=== PATIENT | female | born 1980 | race Caucasian/White ===

== ENCOUNTER 2020-09-27 05:36 | Outpatient (RCR) | payer OTHER ==
[~2020-09-27] VITALS: Ht 164 cm; Wt 81.8 kg
[~2020-09-27 05:36] MED LIST: BUPR300T43 PO; CITA40TA19 PO; HYDR-707 PO; NF-STRAT25 PO; QTP200T PO; QUET200T29 PO; SULF-222 PO
[2020-10-01] MEDS ORDERED: ACHD5005 PO (09:03)
[2020-10-01] MEDS ORDERED: IBUP-1773 PO (09:03)
== END 2020-09-27 11:39 | disposition home or self-care (01) ==
LOC: PREOP 05:36
PROVIDERS: ATTEND Obstetrics & Gynecology
DX: Z01.812 Encounter for preprocedural laboratory examination (principal); N93.9 Abnormal uterine and vaginal bleeding, unspecified; Z20.828 Contact with and (suspected) exposure to other viral communicable diseases
CPT/HCPCS: 87635

== ENCOUNTER 2020-10-01 07:30 | Day surgery (SDC) | payer SELFPAY ==
[~2020-10-01] VITALS: Ht 164 cm; Wt 81.8 kg
[2020-10-01] VITALS (9 sets, daily range): BP systolic 96–124; BP diastolic 52–87
[2020-10-01] MEDS ORDERED: MIDAZOLAM 2 MG/2 ML (VERSED) VIAL ONE ×2 (08:06→09:58)
[2020-10-01] MEDS ORDERED: LACTATED RINGERS 1,000 ML IV PRN (08:11)
[2020-10-01] MEDS ORDERED: MIDAZOLAM 2 MG/2 ML (VERSED) VIAL IVP ONE (08:15)
[2020-10-01 08:16] LABS: BASOPHILS % (AUTO) 1 % (0-10); EOSINOPHILS # (AUTO) 0.2 10^3/uL (0.0-0.3); EOSINOPHILS % (AUTO) 3 % (0-10); HEMATOCRIT 40 % (35-52); HEMOGLOBIN 12.9 g/dL (11.5-16.0); LYMPHOCYTES # (AUTO) 1.8 10^3/uL (1.0-4.0); LYMPHOCYTES % (AUTO) 24 % (12-44); MEAN CORPUSCULAR HEMOGLOBIN 33 pg (25-34); MEAN CORPUSCULAR HGB CONC 32 g/dL (32-36); MEAN CORPUSCULAR VOLUME 101 fL (80-99); MEAN PLATELET VOLUME 9.7 fL (9.0-12.2); MONOCYTES # (AUTO) 0.8 10^3/uL (0.0-1.0); MONOCYTES % (AUTO) 10 % (0-12); NEUTROPHILS # (AUTO) 4.6 10^3/uL (1.8-7.8); NEUTROPHILS % (AUTO) 62 % (42-75); PLATELET COUNT 373 10^3/uL (130-400); WHITE BLOOD COUNT 7.4 10^3/uL (4.3-11.0)
[2020-10-01] MEDS ORDERED: MIDAZOLAM 2 MG/2 ML (VERSED) VIAL IV ONE (08:30)
[2020-10-01] MEDS ORDERED: BUPIVACAINE 0.25% 30 ML (SENSORCAINE) VIAL ONE (08:58)
[2020-10-01] MEDS ORDERED: D5 LR IV SOLUTION 1,000 ML IV SCH (09:01)
--- NOTE | 2020-10-01 09:01 | Progress Note-Pre Operative ---
Pre-Operative Progress Note H&P Reviewed The H&P was reviewed, patient examined and no changes noted. Date Seen by Provider: Oct 01, 2020 Time Seen by Provider: 09:00 Date H&P Reviewed: Oct 01, 2020 Time H&P Reviewed: 09:00 Pre-Operative Diagnosis: AUB, SANNA III with pos endocervix MICHA SCHAFER DO Oct 01, 2020 09:01
[2020-10-01] MEDS ORDERED: ACHD5005 PO (09:03)
[2020-10-01] MEDS ORDERED: IBUP-1773 PO (09:03)
--- NOTE | 2020-10-01 09:03 | Discharge Inst-Women's Service ---
Discharge Inst-Women's Serv Depart Medication/Instructions New, Converted or Re-Newed RX: RX on Chart Problems Reviewed?: Yes Consults/Follow Up Additional Follow Up: Yes Orders/Referrals Dr. Schafer in 2-3 weeks Activity Activity: Activity as Tolerated Driving Instructions: No Driving for 1 Week NO SMOKING: NO SMOKING Nothing Inside Vagina: No Douching, No [place], No Tampons Diet Discharge Diet: No Restrictions Symptoms to Report to : Bleeding Excessive, Pain Increased, Fever Over 101 Degrees F, Vaginal Bleeding Increase, Questions/Concerns For Any Problems or Questions: Contact Your Physician MICHA SCHAFER DO Oct 01, 2020 09:03
[2020-10-01] MEDS ORDERED: HYDROcodone/APAP 5 MG/325 MG (LORTAB) TAB PO PRN (09:15)
[2020-10-01] MEDS ORDERED: KETOROLAC 30 MG/ML VIAL IVP ONE (09:15)
[2020-10-01] MEDS ORDERED: ONDANSETRON 4 MG/2 ML (SDV) Z0FRAN IVP PRN ×2 (09:15→11:00)
[2020-10-01] MEDS ORDERED: fentaNYL INJECTION 100 MCG/2 ML AMP ONE (09:57)
[2020-10-01] MEDS ORDERED: LIDOCAINE/EPI 1%-1:100,000 (XYLOCAINE) 20ML ONE (10:16)
[2020-10-01] MEDS ORDERED: ONDANSETRON 4 MG/2 ML (SDV) Z0FRAN ONE (10:26)
[2020-10-01] MEDS ORDERED: LIDOCAINE PF 2% 5 ML (XYLOCAINE) VIAL ONE (10:26)
[2020-10-01] MEDS ORDERED: proPOfol 200 MG/20 ML (DIPRIVAN) VIAL IV ONE (10:26)
[2020-10-01] MEDS ORDERED: SEVOFLURANE (ULTANE) 15 ML INHAL SOLN ONE (10:26)
[2020-10-01] MEDS ORDERED: morphine INJ 10 MG/ML 1ML (SYR OR VIAL) IVP ONE (11:00)
--- NOTE | 2020-10-01 11:16 | Anesthesia-General Post-Op ---
General Patient Condition Mental Status/LOC: Same as Preop Cardiovascular: Satisfactory Nausea/Vomiting: Absent Respiratory: Satisfactory Pain: Controlled Complications: Absent Post Op Complications Complications None Follow Up Care/Instructions Patient Instructions None needed. Anesthesia/Patient Condition Patient Condition Patient is doing well, no complaints, stable vital signs, no apparent adverse anesthesia problems. No complications reported per nursing. TWAN LAZO CRNA Oct 01, 2020 11:16
--- NOTE | 2020-10-01 21:46 | OPERATIVE REPORT ---
DATE OF SERVICE: PREOPERATIVE DIAGNOSES: 1. A 40-year-old female with abnormal uterine bleeding. 2. SANNA 3 with endocervical involvement. POSTOPERATIVE DIAGNOSES: 1. A 40-year-old female with abnormal uterine bleeding. 2. SANNA 3 with endocervical involvement. PROCEDURE: D and C with cold knife conization. SURGEON: Alexander De León DO ANESTHESIA: LMA general. ESTIMATED BLOOD LOSS: Minimal. URINE OUTPUT: 30 mL drained at the start of the procedure. FLUIDS: 800 mL lactated Ringer's solution. FINDINGS: Grossly normal-appearing external female genitalia with staining of the Lugol solution to the cervix approximately 0.5 cm lateral to the cervical os. SPECIMEN SENT: Endometrial curettings and conization biopsy of the cervix. INDICATIONS FOR PROCEDURE: This 40-year-old female was a consultation to me from the [facility] for a positive SANNA 3 on endocervical sampling on colposcopy. I discussed with the patient the need for conization for both diagnostic and potentially curative purposes. We also discussed proceeding with D and C due to the concern of possible endometrial involvement and invasion of the dysplasia. Risks of the procedure were discussed with the patient in detail and after all of her questions were answered, consent was obtained in the preoperative area and the patient was taken to the operating room. OPERATIVE REPORT IN DETAIL: Once in the operating room, anesthesia was found to be adequate, placed in dorsal lithotomy position, prepped and draped in normal sterile fashion. Timeout was performed. The bladder was drained using straight catheterization. Weighted speculum was inserted into the patient's vagina. Right angle retractor was used to visualize the cervix, which was grasped at 12 o'clock position using a single tooth tenaculum. I then performed paracervical block at 3 and 9 o'clock positions on the cervix. Care was taken to aspirate for injecting 5 mL of 0.25% Marcaine are injected into each site, after which I sound the uterine cavity, depth was found to be approximately 8 cm. I then gently dilated the cervix using Hanks dilators to approximately 1.2 cm, at which point I performed a methodical curettage of the endometrium and collect this tissue and sent as endometrial curettings. I then injected the cervical stroma and cervix is sounded using 1% lidocaine with epinephrine and place vascular ligating sutures at 3 and 9 o'clock position using 0 Vicryl suture. I then performed a conization along the margins of the Lugol solution, which was used to prep the cervix at the start of the procedure. This was done at the wide ectocervical margin of the suspected dysplasia and a cone biopsy was taken of the cervix into the endocervix approximately 1.5 to 2 cm deep. The specimen was removed and sent in one sample as cervical conization. I then cauterized the vascular bed of the dissection margin and plane. I then place a Sturmdorf stitch using 2-0 Vicryl suture in all 4 quadrants of the biopsy margin and after this, a astrn- adapted physical education specialist was applied to the cervix as well. All instruments were removed from the patient's vagina. The patient tolerated the procedure well and sent to recovery in stable condition. Lap and sponge counts were correct at the end of the procedure. Instrument counts correct as well. Job ID: [id number] DocumentID: [id number] Dictated Date: 10/01/2020 11:14:32 Yarn Texturing Machine Operator Date: 10/01/2020 21:45:23 Dictated By: DO EDITH MCPHERSON
== END 2020-10-01 12:20 | disposition home or self-care (01) ==
LOC: SDC 07:30
PROVIDERS: ATTEND Obstetrics & Gynecology
DX: D06.9 Carcinoma in situ of cervix, unspecified (principal); N93.9 Abnormal uterine and vaginal bleeding, unspecified; J45.909 Unspecified asthma, uncomplicated; F41.9 Anxiety disorder, unspecified; F32.9 Major depressive disorder, single episode, unspecified; E66.9 Obesity, unspecified; Z68.30 Body mass index [BMI] 30.0-30.9, adult; F17.210 Nicotine dependence, cigarettes, uncomplicated; Z79.899 Other long term (current) drug therapy
CPT/HCPCS: 36415; 84703; 85025; 86850; 86870; 86900; 86901; 86902; 87081

== ENCOUNTER → 2020-11-13 | Outpatient (CLI) | payer OTHER ==
[~2020-11-13] MED LIST changes: +ACHD5005 PO; +IBUP-1773 PO
== END ==
LOC: RAD 09:00
PROVIDERS: ATTEND Obstetrics & Gynecology
DX: C53.9 Malignant neoplasm of cervix uteri, unspecified (principal); Z20.828 Contact with and (suspected) exposure to other viral communicable diseases

== ENCOUNTER 2020-11-21 05:30 | Outpatient (RCR) | payer OTHER ==
[~2020-11-21] VITALS: Ht 162 cm; Wt 84.0 kg
[~2020-11-21 05:30] MED LIST changes: +QUET100T PO; +QUET200T PO
== END 2020-11-21 15:18 | disposition home or self-care (01) ==
LOC: PREOP 05:30
PROVIDERS: ATTEND Surgery
DX: Z01.812 Encounter for preprocedural laboratory examination (principal); Z20.828 Contact with and (suspected) exposure to other viral communicable diseases
CPT/HCPCS: 87635

== ENCOUNTER → 2020-11-22 | Day surgery (SDC) | payer OTHER ==
[~2020-11-22] VITALS: Ht 162 cm; Wt 84.0 kg
[~2020-11-22] MED LIST changes: +0.9% SODIUM CHLORIDE PF INJ 20 ML VIAL ONE; +HEParin (CENTRAL IV FLUSH) 500 UNIT/5 ML SYR ONE; +LIDOCAINE/EPI 1%-1:100,000 (XYLOCAINE) 50 ML ONE; +MIDAZOLAM 2 MG/2 ML (VERSED) VIAL IV ONE; +ceFAZolin INJECTION 1,000 MG in WATER (STERILE) FOR INJECTION 10 ML IV ONE
[2020-11-22 07:15] VITALS: BP 125/90
[2020-11-22 07:34] LABS: AMPHETAMINE SCREEN, URINE POSITIVE (NEGATIVE); BARBITURATE SCREEN URINE NEGATIVE (NEGATIVE); BENZODIAZEPINES SCREEN URINE POSITIVE (NEGATIVE); CANNABINOID SCREEN, URINE POSITIVE (NEGATIVE); COCAINE SCREEN URINE NEGATIVE (NEGATIVE); METHADONE STAT NEGATIVE (NEGATIVE); METHAMPHETAMINE SCREEN URINE S POSITIVE (NEGATIVE); OPIATE SCREEN URINE NEGATIVE (NEGATIVE); OXYCODONE STAT NEGATIVE (NEGATIVE); PROPOXYPHENE STAT NEGATIVE (NEGATIVE); TRICYCLIC ANTIDEPRESSANTS SCRE POSITIVE (NEGATIVE)
--- NOTE | 2020-11-22 07:40 | NUR ---
RESULTS OF URINE DRUG SCREEN RECEIVED AND Laura CABRERA CRNA, NOTIFIED. Laura CABRERA CRNA, NOTIFIED DR. SPEARS AND THE SURGERY WILL BE CANCELLED. Laura CABRERA CRNA, SPOKE WITH THE PATIENT. IV DC'D PER THIS RN AND PATIENT DISMISSED TO HOME AT 0750.
== END ==
LOC: SDC 06:58
PROVIDERS: ATTEND Surgery
DX: I87.2 Venous insufficiency (chronic) (peripheral) (principal); Z53.8 Procedure and treatment not carried out for other reasons
CPT/HCPCS: 80306; 84703; 87081

== ENCOUNTER 2020-11-27 12:00 | Emergency (ER) | payer OTHER ==
[~2020-11-27] VITALS: Ht 152.4 cm; Wt 81.1 kg
[~2020-11-27 12:00] MED LIST changes: -0.9% SODIUM CHLORIDE PF INJ 20 ML VIAL ONE; -HEParin (CENTRAL IV FLUSH) 500 UNIT/5 ML SYR ONE; -LIDOCAINE/EPI 1%-1:100,000 (XYLOCAINE) 50 ML ONE; -MIDAZOLAM 2 MG/2 ML (VERSED) VIAL IV ONE; -ceFAZolin INJECTION 1,000 MG in WATER (STERILE) FOR INJECTION 10 ML IV ONE
[2020-11-27 12:49] LABS: BILIRUBIN,URINE NEGATIVE (NEGATIVE); CLARITY,URINE CLEAR; COLOR,URINE YELLOW; GLUCOSE, URINE (UA) NEGATIVE (NEGATIVE); KETONES,URINE NEGATIVE (NEGATIVE); LEUKOCYTE ESTERASE ,URINE NEGATIVE (NEGATIVE); NITRITE,URINE NEGATIVE (NEGATIVE); PROTEIN,URINE NEGATIVE (NEGATIVE)
[2020-11-27 12:50] LABS: BASOPHILS % (AUTO) 0 % (0-10); EOSINOPHILS # (AUTO) 0.2 10^3/uL (0.0-0.3); EOSINOPHILS % (AUTO) 3 % (0-10); HEMATOCRIT 39 % (35-52); HEMOGLOBIN 13.1 g/dL (11.5-16.0); LYMPHOCYTES # (AUTO) 2.5 10^3/uL (1.0-4.0); LYMPHOCYTES % (AUTO) 36 % (12-44); MEAN CORPUSCULAR HEMOGLOBIN 32 pg (25-34); MEAN CORPUSCULAR HGB CONC 34 g/dL (32-36); MEAN CORPUSCULAR VOLUME 96 fL (80-99); MEAN PLATELET VOLUME 9.2 fL (9.0-12.2); MONOCYTES # (AUTO) 0.5 10^3/uL (0.0-1.0); MONOCYTES % (AUTO) 6 % (0-12); NEUTROPHILS # (AUTO) 3.9 10^3/uL (1.8-7.8); NEUTROPHILS % (AUTO) 55 % (42-75); PLATELET COUNT 410 10^3/uL (130-400); WHITE BLOOD COUNT 7.2 10^3/uL (4.3-11.0)
[2020-11-27 13:01] LABS: BACTERIA,URINE TRACE /HPF; RBC,URINE RARE /HPF
[2020-11-27] MEDS ORDERED: IOHEXOL 350 MG/ML 100 ML (OMNIPAQUE 350) VIAL IV ONE (13:15)
[2020-11-27] MEDS ORDERED: NS 100 ML (IVPB) BAG IV ONE (13:15)
[2020-11-27] MEDS ORDERED: HOLD METFORMIN - RECEIVED CONTRAST 20 ML VIAL IV SCH (13:15)
[2020-11-27 13:24] LABS: ALANINE AMINOTRANSFERASE 14 U/L (0-55); ALBUMIN 3.7 GM/DL (3.2-4.5); ALKALINE PHOSPHATASE 51 U/L (40-136); BILIRUBIN,TOTAL 0.3 MG/DL (0.1-1.0); BUN/CREATININE RATIO 19; CALCIUM 8.5 MG/DL (8.5-10.1); CARBON DIOXIDE 29 MMOL/L (21-32); CHLORIDE 104 MMOL/L (98-107); CREATININE SERUM 0.68 MG/DL (0.60-1.30); GFR ESTIMATED > 60; GLUCOSE 119 MG/DL (70-105); LIPASE 38 U/L (8-78); SODIUM 134 MMOL/L (135-145); TOTAL PROTEIN 6.7 GM/DL (6.4-8.2)
--- NOTE | 2020-11-27 14:13 | Diagnostic Imaging Report ---
PROCEDURE: CT abdomen and pelvis with contrast. TECHNIQUE: Multiple contiguous axial images were obtained through the abdomen and pelvis after administration of intravenous contrast. Auto Exposure Controls were utilized during the CT exam to meet ALARA standards for radiation dose reduction. All CT scans use one or more of the following dose optimizing techniques: automated exposure control, MA and/or KvP adjustment based on patient size and exam type or iterative reconstruction. INDICATION: Left lower quadrant pain radiating to the back. COMPARISON: No prior studies are available for comparison. FINDINGS: The lung bases are clear. No discrete liver mass is identified. Gallbladder is surgically absent. There is no biliary ductal dilatation. Pancreas and spleen are unremarkable. No adrenal mass is identified. Kidneys are unremarkable. Aorta is nonaneurysmal. Small and large bowel loops appear to be normal in caliber. There is no obstruction. No definite inflammatory changes are seen. Specifically, left lower quadrant is unremarkable. There is moderate stool in the colon. No free fluid or fluid collection is identified. Bladder and uterus are unremarkable. No definite abdominal or pelvic lymphadenopathy is seen. IMPRESSION: Unremarkable CT of the abdomen and pelvis. No acute abnormality is identified. Dictated by: Dictated on workstation # [id number]
[2020-11-27] MEDS ORDERED: KETOROLAC 30 MG/ML VIAL IVP ONE (14:45)
[2020-11-27] MEDS ORDERED: TRAM-42 PO (14:56)
--- NOTE | 2020-11-27 14:57 | ED Abdominal Pain ---
General Chief Complaint: General Problems/Pain Stated Complaint: L SIDE PAIN / BACK PAIN Nursing Triage Note: AMB TO ROOM REPORTS HAD CERVICAL BIOSPY ON OCT 02 UNSURE OF RESULTS BUT WAS TO HAVE PORT PLACED LAST WEEK BUT WAS UNABLE TO BECAUSE SHE TESTED POSITIVE FOR METH. CON'T TO HAVE L SIDE PAIN. Sepsis Screen: No Definite Risk Source of Information: Patient Exam Limitations: No Limitations History of Present Illness Date Seen by Provider: Nov 27, 2020 Time Seen by Provider: 12:29 Initial Comments This 40-year-old woman presents to the emergency room with complaints of pain in the left flank and lower back region that radiates around to her abdomen. This has been ongoing for a few days. It is tender to palpation and painful with movement. She denies any constipation, diarrhea, fever, or urinary changes. She has a history of cervical squamous cell carcinoma diagnosed by cone biopsy. She was to have a PET scan but IV access has proved to be a problem. She was then scheduled for port placement but that was canceled when she tested positive for methamphetamines. 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 Dr. cShafer was her childrens club attendant obtaining the biopsy. Allergies and Home Medications Allergies Coded Allergies: No Known Drug Allergies (Unverified , 10/11/10) Home Medications Quetiapine Fumarate 200 Mg Tablet, 200 MG PO HS, (Reported) Quetiapine Fumarate 100 Mg Tablet, 100 MG PO DAILY PRN for ANXIETY, (Reported) Tramadol HCl 50 Mg Tablet, 50 MG PO Q6H PRN for PAIN-BREAKTHROUGH Prescribed by: GURPREET MEDINA on 11/27/20 3170 Patient Home Medication List Home Medication List Reviewed: Yes Review of Systems Review of Systems Constitutional: no symptoms reported EENTM: No Symptoms Reported Respiratory: No Symptoms Reported Cardiovascular: No Symptoms Reported Gastrointestinal: See HPI Genitourinary: See HPI Musculoskeletal: no symptoms reported Skin: no symptoms reported Psychiatric/Neurological: See HPI Endocrine: No Symptoms Reported Hematologic/Lymphatic: No Symptoms Reported Past Bqnirtt-Xeilog-Utlmbe Hx Past Med/Social Hx: Reviewed Nursing Past Med/Soc Hx Patient Social History Alcohol Use: Occasionally Uses Recreational Drug Use: Yes (METH) Type Used: Cigarettes 2nd Hand Smoke Exposure: Yes Recent Foreign Travel: No Contact w/Someone Who Travel: No Recent Infectious Disease Expo: No Recent Hopitalizations: No Seasonal Allergies Seasonal Allergies: Yes Past Medical History Surgeries: Yes (CERVICAL BIOPSY) Appendectomy, Gallbladder, Tubal Ligation Respiratory: Yes (BRONCHIAL ASTHMA) Asthma, Chronic Bronchitis Currently Using CPAP: No Currently Using BIPAP: No Cardiac: No Neurological: Yes Headaches /Migraines Reproductive Disorders: No CONCHE OPERATOR History: Tubal Ligation Genitourinary: Yes Kidney Stones Gastrointestinal: Yes Gastroesophageal Reflux Musculoskeletal: No Endocrine: No HEENT: No Loss of Vision: Denies Hearing Impairment: Denies Cancer: Yes Cervical Psychosocial: Yes Anxiety, Depression Integumentary: No Blood Disorders: Yes (MRSA) Adverse Reaction/Blood Tranf: No (N/A) Physical Exam Vital Signs Vital Signs - First Documented 11/27/20 12:06 Temp 35.3 Pulse 87 Resp 18 B/P (MAP) 131/87 (102) Pulse Ox 98 O2 Delivery Room Air Capillary Refill : Less Than 3 Seconds Height/Weight/BMI Height: 5'4" Weight: 190lbs. oz. [id number]; 34.00 BMI Method:Stated General Appearance: WD/WN, mild distress HEENT: normal ENT inspection Neck: normal inspection Respiratory: lungs clear, normal breath sounds, no respiratory distress Cardiovascular: regular rate, rhythm, no edema, no murmur Gastrointestinal: normal bowel sounds, soft, tenderness (Minimal in the left lower quadrant) Extremities: normal inspection, no pedal edema Back: no CVA tenderness Neurologic/Psychiatric: executive candidate developer II-XII nml as tested, no motor/sensory deficits, alert, normal mood/affect, oriented x 3 Skin: normal color, warm/dry Progress/Results/Core Measures Results/Orders Lab Results Laboratory Tests Test 11/27/20 12:33 11/27/20 12:44 Range/Units Urine Color YELLOW Urine Clarity CLEAR Urine pH 6.0 5-9 Urine Specific [place]ver 1.015 L 1.016-1.022 Urine Protein NEGATIVE NEGATIVE Urine Glucose (UA) NEGATIVE NEGATIVE Urine Ketones NEGATIVE NEGATIVE Urine Nitrite NEGATIVE NEGATIVE Urine Bilirubin NEGATIVE NEGATIVE Urine Urobilinogen 0.2 < = 1.0 MG/DL Urine Leukocyte Esterase NEGATIVE NEGATIVE Urine RBC (Auto) 1+ H NEGATIVE Urine RBC RARE /HPF Urine WBC NONE /HPF Urine Squamous Epithelial Cells 5-10 /HPF Urine Crystals NONE /LPF Urine Bacteria TRACE /HPF Urine Casts NONE /LPF Urine Mucus NEGATIVE /LPF Urine Culture Indicated NO White Blood Count 7.2 4.3-11.0 10^3/uL Red Blood Count 4.07 3.80-5.11 10^6/uL Hemoglobin 13.1 11.5-16.0 g/dL Hematocrit 39 35-52 % Mean Corpuscular Volume 96 80-99 fL Mean Corpuscular Hemoglobin 32 25-34 pg Mean Corpuscular Hemoglobin Concent 34 32-36 g/dL Red Cell Distribution Width 13.0 10.0-14.5 % Platelet Count 410 H 130-400 10^3/uL Mean Platelet Volume 9.2 9.0-12.2 fL Immature Granulocyte % (Auto) 0 % Neutrophils (%) (Auto) 55 42-75 % Lymphocytes (%) (Auto) 36 12-44 % Monocytes (%) (Auto) 6 0-12 % Eosinophils (%) (Auto) 3 0-10 % Basophils (%) (Auto) 0 0-10 % Neutrophils # (Auto) 3.9 1.8-7.8 10^3/uL Lymphocytes # (Auto) 2.5 1.0-4.0 10^3/uL Monocytes # (Auto) 0.5 0.0-1.0 10^3/uL Eosinophils # (Auto) 0.2 0.0-0.3 10^3/uL Basophils # (Auto) 0.0 0.0-0.1 10^3/uL Immature Granulocyte # (Auto) 0.0 0.0-0.1 10^3/uL Sodium Level 134 L 135-145 MMOL/L Potassium Level 4.0 3.6-5.0 MMOL/L Chloride Level 104 98-107 MMOL/L Carbon Dioxide Level 29 21-32 MMOL/L Anion Gap 1 L 5-14 MMOL/L Blood Urea Nitrogen 13 7-18 MG/DL Creatinine 0.68 0.60-1.30 MG/DL Estimat Glomerular Filtration Rate > 60 BUN/Creatinine Ratio 19 Glucose Level 119 H 70-105 MG/DL Calcium Level 8.5 8.5-10.1 MG/DL Corrected Calcium 8.7 8.5-10.1 MG/DL Total Bilirubin 0.3 0.1-1.0 MG/DL Aspartate Amino Transf (AST/SGOT) 19 5-34 U/L Alanine Aminotransferase (ALT/SGPT) 14 0-55 U/L Alkaline Phosphatase 51 40-136 U/L Total Protein 6.7 6.4-8.2 GM/DL Albumin 3.7 3.2-4.5 GM/DL Lipase 38 8-78 U/L Serum Test, Qualitative NEGATIVE NEGATIVE My Orders Orders - GURPREET CHINO MD Cbc With Automated Diff (11/27/20 12:29) Comprehensive Metabolic Panel (11/27/20 12:29) Hcg,Qualitative Serum (11/27/20 12:29) Lipase (11/27/20 12:29) Ua Culture If Indicated (11/27/20 12:29) Ct Abdomen/Pelvis W (11/27/20 12:29) Ed Iv/Invasive Line Start (11/27/20 12:29) Iohexol Injection (Omnipaque 350 Mg/Ml 1 (11/27/20 13:15) Received Contrast (Hold Metformin- Contr (11/27/20 13:15) Ns (Ivpb) (Sodium Chloride 0.9% Ivpb Bag (11/27/20 13:15) Ketorolac Injection (Toradol Injection) (11/27/20 14:45) Medications Given in ED Current Medications Medications Dose Ordered Sig/Kimber Route Start Time Stop Time Status Last Admin Dose Admin Iohexol 100 ml ONCE ONCE IV 11/27/20 13:15 11/27/20 13:16 DC 11/27/20 13:48 100 ML Ketorolac Tromethamine 30 mg ONCE ONCE IVP 11/27/20 14:45 11/27/20 14:46 DC 11/27/20 15:01 30 MG Sodium Chloride 100 ml ONCE ONCE IV 11/27/20 13:15 11/27/20 13:16 DC 11/27/20 13:48 100 ML Vital Signs/I&O 11/27/20 11/27/20 12:06 15:13 Temp 35.3 Pulse 87 63 Resp 18 18 B/P (MAP) 131/87 (102) 120/74 Pulse Ox 98 98 O2 Delivery Room Air High Flow N/C Blood Pressure Mean: 102 Diagnostic Imaging Diagonstic Imaging: CT Plain Films/CT/US/NM/MRI: abdomen, pelvis Comments CT abdomen and pelvis was viewed by me and report reviewed. No acute abnormalities to account for her pain were identified. Lab work-up was also unremarkable. The importance of obtaining the PET scan was discussed. Pain was treated with Toradol in the ER. Departure Impression Primary Impression: Left sided abdominal pain Additional Impression: Squamous cell carcinoma of cervix Disposition: 01 HOME, SELF-CARE Condition: Improved Departure-Patient Inst. Decision time for Depature: 14:52 Referrals: NO,LOCAL PHYSICIAN (PCP/Family) Primary Care Physician Patient Instructions: Severe Abdominal Pain, Adult (DC) Add. Discharge Instructions: The exact cause of your back and abdominal pain is uncertain. There do not appear to be any infectious or surgical problems that need immediate attention today based on your work-up. It is very important that you pursue the PET scan for staging of the cervical squamous cell carcinoma identified on your biopsy. Avoid use of any illicit substances such as marijuana, methamphetamines, etc. so that it will not interfere with your PET scan or other work-ups. Use Tylenol (acetaminophen) up to 1000 mg every 6 hours as needed for pain. Add Ultram (tramadol) for pain not controlled by Tylenol. Please be advised this may cause drowsiness or constipation. You may choose to use a stool softener while taking Ultram. Avoid use of NSAIDs such as ibuprofen or naproxen for a while. These may worsen pain caused by stomach issues. It may be beneficial to take an antacid medication such as Pepcid (famotidine) or Prilosec (omeprazole) as your pain may be related to the stomach. These can be purchased [id number]. Return to the emergency room if you have worsening symptoms. Call with questions or concerns. Follow-up with your primary care provider soon as possible. All discharge instructions reviewed with patient and/or family. Voiced understanding. Scripts Tramadol HCl (Ultram) 50 Mg Tablet 50 MG PO Q6H PRN for PAIN-BREAKTHROUGH, #10 TAB Prov: GURPREET CHINO MD 11/27/20 Copy Copies To 1: MICHA SCHAFER JOSHUA T MD Nov 27, 2020 14:57
[2020-11-27 15:13] VITALS: BP 120/74
== END 2020-11-27 15:13 | disposition home or self-care (01) ==
LOC: EDUNIT# 12:00 → ER 12:02
DX: C53.9 Malignant neoplasm of cervix uteri, unspecified (principal); R10.32 Left lower quadrant pain; F32.9 Major depressive disorder, single episode, unspecified; Z77.22 Contact with and (suspected) exposure to environmental tobacco smoke (acute) (chronic)
CPT/HCPCS: 36415; 74177; 80053; 81000; 83690; 84703; 85025

== ENCOUNTER 2020-12-03 05:32 | Outpatient (RCR) | payer OTHER ==
[~2020-12-03] VITALS: Ht 162 cm; Wt 81.1 kg
[~2020-12-03 05:32] MED LIST changes: +TRAM-42 PO
[2020-12-05] MEDS ORDERED: TRAM-42 PO (10:05)
== END 2020-12-03 10:28 | disposition home or self-care (01) ==
LOC: PREOP 05:32
PROVIDERS: ATTEND Surgery
DX: Z01.818 Encounter for other preprocedural examination (principal); I87.2 Venous insufficiency (chronic) (peripheral); Z20.828 Contact with and (suspected) exposure to other viral communicable diseases
CPT/HCPCS: 87635

== ENCOUNTER 2020-12-05 07:16 | Day surgery (SDC) | payer OTHER ==
[2020-12-05] VITALS (7 sets, daily range): BP systolic 112–136; BP diastolic 66–84
[~2020-12-05] VITALS: Ht 162 cm; Wt 81.1 kg
[2020-12-05] MEDS ORDERED: ceFAZolin INJECTION 1,000 MG in WATER (STERILE) FOR INJECTION 10 ML IV ONE (07:30)
[2020-12-05 07:45] LABS: AMPHETAMINE SCREEN, URINE NEGATIVE (NEGATIVE); BARBITURATE SCREEN URINE NEGATIVE (NEGATIVE); BENZODIAZEPINES SCREEN URINE NEGATIVE (NEGATIVE); CANNABINOID SCREEN, URINE POSITIVE (NEGATIVE); COCAINE SCREEN URINE NEGATIVE (NEGATIVE); METHAMPHETAMINE SCREEN URINE S NEGATIVE (NEGATIVE); OPIATE SCREEN URINE NEGATIVE (NEGATIVE); TRICYCLIC ANTIDEPRESSANTS SCRE NEGATIVE (NEGATIVE)
[2020-12-05 07:46] LABS: METHADONE STAT NEGATIVE (NEGATIVE); OXYCODONE STAT NEGATIVE (NEGATIVE); PROPOXYPHENE STAT NEGATIVE (NEGATIVE)
[2020-12-05] MEDS ORDERED: LIDOCAINE/EPI 1%-1:100,000 (XYLOCAINE) 50 ML ONE (07:55)
[2020-12-05] MEDS ORDERED: 0.9% SODIUM CHLORIDE PF INJ 20 ML VIAL ONE (07:55)
[2020-12-05] MEDS ORDERED: HEParin (CENTRAL IV FLUSH) 500 UNIT/5 ML SYR ONE (07:55)
[2020-12-05] MEDS: LACTATED RINGERS 1,000 ML IV PRN ×2 (08:07→10:11)
--- NOTE | 2020-12-05 08:26 | Progress Note-Pre Operative ---
Pre-Operative Progress Note H&P Reviewed The H&P was reviewed, patient examined and no changes noted. Time Seen by Provider: 08:21 Date H&P Reviewed: Dec 05, 2020 Time H&P Reviewed: 08:22 Pre-Operative Diagnosis: Venous Insufficiency, Cervical CA THAO SPEARS DO Dec 05, 2020 08:26
[2020-12-05] MEDS ORDERED: PROPOFOL INJECTION 50 ML IV ONE (08:47)
[2020-12-05] MEDS ORDERED: fentaNYL INJECTION 100 MCG/2 ML AMP ONE (08:47)
[2020-12-05] MEDS ORDERED: MIDAZOLAM 2 MG/2 ML (VERSED) VIAL ONE ×2 (08:47→09:24)
[2020-12-05] MEDS ORDERED: KETAMINE/NaCl 50 MG/5 ML SYRINGE (ED ONLY) ONE (09:35)
--- NOTE | 2020-12-05 10:03 | Progress Note-Post Operative ---
Post-Operative Progess Note Surgeon (s)/Lieutenant Ballistics (s) Surgeon THAO SPEARS DO Lieutenant Ballistics: HIEN Aguilera Pre-Operative Diagnosis Venous Insufficiency, Cervical CA Post-Operative Diagnosis same Procedure & Operative Findings Date of Procedure 12/05/20 Procedure Performed/Findings PROCEDURE: [Left] internal jugular port placement using ultrasound guidance. COMPLICATIONS: None. INDICATIONS: The patient is a 40 year old female [with Cervical CA and Venous Insufficiency]. Patient understands the risks and benefits of port placement and wished to proceed with the procedure. Consent was signed on the chart. PROCEDURE: The patient was taken to the operating suite, was prepped and draped in the sterile fashion. A surgical pause was performed. Local lidocaine was infiltrated on the left anterior chest wall and towards the left clavicle. Using an 18 gauge finder needle it was advanced with negative inspiration towards the left clavicle and the subclavian vein was accessed, dark nonpulsatile blood was withdrawn. The wire was inserted using the seldinger technique and fluoroscopy assured proper placement. The needle was removed. A stab incision was made along the guidewire and then over the left anterior chest wall. The dilator was advanced over the wire and the wire was removed. Again fluoroscopy assured proper placement. Cautery was used to dissect down to the pectoral fascia. A pocket was created with blunt dissection. The catheter was then advanced over the wire under fluoroscopy and the dilator was removed. The catheter was then tunneled to the right chest pocket. Fluoroscopy was used to cut to length and this was then attached to the port which was then placed within the pocket. The port was then accessed without difficulty. It was then flushed with saline and then heparin. The subcutaneous tissues were then reapproximated using 3-0 Vicryl. The skin was closed with 4-0 Undyed monocryl, 3 subcuticular stitches. The areas were then washed and dried. Skin Affix was placed over incision. The patient tolerated the procedure well without complication and was taken to recovery room in stable condition. Anesthesia Type IV Sedation by CUTTING DEPARTMENT SUPERVISOR Estimated Blood Loss Estimated blood loss (mL): scant Specimens/Packing Specimens Removed none THAO SPEARS DO Dec 05, 2020 10:03
--- NOTE | 2020-12-05 10:04 | Discharge Inst-Surgical ---
Discharge Inst-Surgical Depart Medication/Instructions New, Converted or Re-Newed RX: RX Given to Pt/Family Patient Instructions Follow up Appt: Make appointment for 1 week. [phone] Instructions: No lifting greater than 20 pounds. No strenuous activity. May shower in 24 hours, no tub bath or soaking. Use incentive spirometer at home as directed. No Smoking Skin/Wound Care: May remove bandages in am. You need to leave the Dermabond on incision it will fall off on it's own. Symptoms to Report: Appetite Changes, Extremity Discoloration, Numbness/Tingling, Swelling Increased, Bleeding Excessive, Eyesight Changes, Pain Increased, Urine Color Change, Constipation(Persistent), Fever over 101 degree F, Pain/Pressure in chest, Urinating Difficulty, Cough Up/Vomit Blood, Heart Beat Irreg/Pounding, Pain/Pressure in jaw, Cramps in feet or legs, Lightheadedness, Pain/Pressure in shoulder, Diarrhea(Persistent), Memory Changes Suddenly, Questions/Concerns, Weight gain consecutive days, Dizziness/Fainting, Nausea/Vomiting, Shortness of Breath, Weight gain over 2 pounds If questions or concerns contact your physician Or seek help at emergency department. Activity Activity as Tolerated: Yes Activity Instructions: Avoid Stress to Incision Driving Instructions: No Driving/Refer to Dr. Chavis Discharge Diet: No Restrictions Diet After 24 Hours: Clear Liquid if Nauseous If Any Problems/Questions/Issu: Contact Your Physician, Go to Emergency Room Skin/Wound Care Infection Signs and Symptoms: Increased Redness, Foul Odor of Wound, Increased Drainage, Skin Itchy or Has a Rash, Increased Swelling, Temperature Above 101 F Bathing Instructions: Shower Stitches/Guicho/Dermabond Dis: THAO Miranda DO Dec 05, 2020 10:04
[2020-12-05] MEDS ORDERED: TRAM-42 PO (10:05)
[2020-12-05] MEDS ORDERED: morphine INJ 10 MG/ML 1ML (SYR OR VIAL) IVP ONE (10:15)
[2020-12-05] MEDS ORDERED: ONDANSETRON 4 MG/2 ML (SDV) Z0FRAN IVP PRN (10:15)
[2020-12-05] MEDS ORDERED: MEPERIDINE (DEMEROL) INJ 50 MG/ML IVP ONE (10:15)
[2020-12-05] MEDS ORDERED: fentaNYL INJECTION 100 MCG/2 ML AMP IVP ONE (10:15)
--- NOTE | 2020-12-05 10:37 | Anesthesia-General Post-Op ---
MAC Patient Condition Mental Status/LOC: Same as Preop Cardiovascular: Satisfactory Nausea/Vomiting: Absent Respiratory: Satisfactory Pain: Controlled Complications: Absent Post Op Complications Complications None Follow Up Care/Instructions Patient Instructions None needed. Anesthesiology Discharge Order Discharge Order Patient is doing well, no complaints, stable vital signs, no apparent adverse anesthesia problems. No complications reported per nursing. MARTIN POON CRNA Dec 05, 2020 10:37
--- NOTE | 2020-12-05 10:42 | Diagnostic Imaging Report ---
INDICATION: Port-A-Cath placement. IMPRESSION: 5.9 seconds of fluoroscopy with a single digital image was used in Surgery by Dr. Dwyer during Port-A-Cath insertion. The image shows the left subclavian Port-A-Cath tip projecting over the left innominate vein. Dictated by: Dictated on workstation # [id number]
== END 2020-12-05 11:00 ==
LOC: SDC 07:16
PROVIDERS: ATTEND Surgery
DX: C53.9 Malignant neoplasm of cervix uteri, unspecified (principal); I87.2 Venous insufficiency (chronic) (peripheral); F17.210 Nicotine dependence, cigarettes, uncomplicated; Z80.51 Family history of malignant neoplasm of kidney; J45.909 Unspecified asthma, uncomplicated; F32.9 Major depressive disorder, single episode, unspecified; K21.9 Gastro-esophageal reflux disease without esophagitis; Z79.899 Other long term (current) drug therapy
CPT/HCPCS: 36561; 76000; 80306; 84703; 87081; C1788